=== PATIENT | male | born 1990 | race Caucasian/White ===

== ENCOUNTER 2024-11-30 15:26 | Outpatient (AMB) | payer MEDICAID, SELFPAY ==
[2024-11-30 15:51] VITALS: BP 131/83; PULSE 92; RESP 19; TEMP 36.6; O2SAT 98; BMI 37.6
--- NOTE | 2024-11-30 15:51 | ACNOTE_ITS ---
Vital Signs 11/30/24 15:51 Height 1.7 m Height Method Stated Weight 109.089 kg Weight Measurement Method Standing Scale BMI 37.6 BP 131/83 H Blood Pressure Source Automatic Cuff Blood Pressure Location Right Upper Arm Position Sitting Respiration 19 Pulse 92 Pulse Source Monitor Temp 97.8 F Temp Source Temporal Artery Scan Pulse Oximetry (%) 98 Oxygen Delivery Method Room Air Allergies/Meds Allergies & Medications Allergies NKA* Allergy (Uncoded 05/29/15 22:42) MA Intake Visit Data Collection New Patient or Established: Established Patient (seen at [facility] within 3 years) Seen by Clinical Staff ONLY (RN/MA): No Reason for Visit:: PT NEEDS INHALER FOR SEASONAL ALLERGIES Pain Present Currently: No 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 Required: No PCP or OBGYN visit in last 3 months: No Do You Feel Safe at Home: Yes Authorities Contacted: N/A Smoking Status Smoking Status: Never smoker Immunization / Flu Flu Vaccine in the Last 12 Months: Yes Flu Vaccine Exclusion Criteria: Already Received Past Medical History Social History SMOKING STATUS: Smoking status: Never smoker Patient Portal Questionaires Social History Tobacco History Smoking Status: Never smoker Domestic Abuse History Do You Feel Safe at Home: Yes Review of Systems Report any current symptoms Only answer those that you have currently: Past Medical History Past Medical History Have you ever been diagnosed with any of the following: History of Present Illness HPI Narrative Patient is a 34-year-old male past medical history of seasonal allergic rhinitis, asthma, history of shoulder and wrist dislocation, 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 The patient is seen in the office today as he is complaining of shortness of breath, which is worse when he is exposed to pollen and dust or allergens. Patient reported he has had the symptoms for the past 10 years, and has been prescribed inhalers in the past also used montelukast in the past, recently used Advair now he ran out of Advair and is requesting refills. Patient did report some wheezing, also reported that using the inhalers once a day does help his symptoms. Patient has not been formally evaluated by a flow match sofa cutter or an assistant professor of geography. He has not had PFTs in the past. Reported he has nocturnal symptoms at least once a week. 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 He has already seen the counselor for work-related stress. Patient reported his previous job as an athlete required he to be more active and now with a desk job he finds it hard to sit still and focus, also has insomnia and he stressed out as he is missing deadlines at work. Denied chest pain, orthopnea or PND, though he did endorse nocturnal symptoms waking up from sleep feeling short of breath once a week. Denied diarrhea, vomiting or abdominal pain. 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 Family history: Denied family history of cardiac disorders. Review of Systems Review of Systems Systems Reviewed: All systems reviewed, normal except as documented Objective/Exam Narrative Physical exam: General: AOx3, cooperative, muscular build. Skin: Intact, no cyanosis or edema noted. HEENT: Atraumatic/normocephalic, ANA, neck supple Heart: RRR, S1 and S2 without clicks or murmurs Lungs: Clear on auscultation bilaterally, no audible wheezing on auscultation. Abdomen: Soft, nontender. Bowel sounds present . Vascular: Peripheral pulses palpable Neuro: No focal neurological deficits noted. Assessment & Plan Diagnosis / Problem List (1) Asthma: Status: Acute Qualifiers: Asthma severity: mild Asthma persistence: intermittent Asthma complication type: uncomplicated Qualified Code(s): J45.20 - Mild intermittent asthma, uncomplicated Assessment & Plan: No formal diagnosis of asthma, no PFTs in the past, will consider referral to flow match sofa cutter for outpatient pulmonary function test. Patient did report that using Advair discus once a day has resolved his symptoms in the past and he only needs to use it when he is symptomatic. Has not used rescue inhalers in the past. Endorsed montelukast/Singulair use in the past, but reported no significant benefit. Symptoms related to asthma versus seasonal allergic rhinitis. Requesting refills for Advair. Plan: ? Advair discus daily ? Montelukast 10 mg daily ? Counseled patient regarding need for pulmonology referral and PFTs, patient currently hesitant, will reevaluate options on next visit. 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 He has already seen the counselor for work-related stress. Patient reported his previous job as an athlete required he to be more active and now with a desk job he finds it hard to sit still and focus, also has insomnia and he stressed out as he is missing deadlines at work. Anxiety symptoms, less likely depression. Plan: ? Counseled regarding talking to family and friends, adjustment disorder at work due to different line of work. ? Continue taking counseling sessions ? If patient continues to be symptomatic, consider psychologist referral. Plan Plan of care discussed with attending MD Carlie Ramirez PGY3 Office Procedures [facility] Level of Care Nursing/Assessment Patient Status: Initial/New Patient Nursing Assessment/Reassessment: Medication Reconciliation, Update PMH in EMR and Vital Signs Coordination of Care: Complex Care and Chronic Disease 1-5, Consent,records obtained, informed consent, Lab and Imaging orders and Results/Orders obtained New Patient Charge New Patient Point Assignment: [id number] New Patient Point Charge: ENVIRONMENTAL COMPLIANCE SPECIALIST Level 3 ([id number])
== END 2024-11-30 16:23 | disposition home or self-care (01) ==
LOC: HODAHC 15:26
PROVIDERS: PCP Physician Assistant; Referring Provider Physician Assistant; Supervising Provider Internal Medicine; Visit Provider Student in an Organized Health Care Education/Training Program
DX: J45.20 Mild intermittent asthma, uncomplicated (principal); Z56.6 Other physical and mental strain related to work; Z71.89 Other specified counseling
CPT/HCPCS: 99203; G0463